=== PATIENT | male | born 1990 | race African-American/Black ===

== ENCOUNTER 2018-12-03 20:03 | Emergency (ER) | payer OTHER ==
[~2018-12-03] VITALS: Ht 195.6 cm; Wt 96.0 kg
[2018-12-03 20:07] VITALS: BP 144/98
[2018-12-03] MEDS ORDERED: RISP2 PO (20:22)
[2018-12-03] MEDS ORDERED: OLAN5TAB2 PO (20:22)
[2018-12-03] MEDS ORDERED: OLAN10TA3 PO (20:22)
[2018-12-03 20:38] LABS: BASOPHILS % (AUTO) 0.4 % (0.0-2.0); EOSINOPHILS % (AUTO) 2.4 % (1.0-6.0); HEMATOCRIT 44.4 % (41-53); HEMOGLOBIN 15.1 g/dL (13.5-17.5); LYMPHOCYTES # (AUTO) 1.4 K/uL (1.0-4.8); LYMPHOCYTES % (AUTO) 20.4 % (22.0-44.0); MEAN CORPUSCULAR HEMOGLOBIN 30.4 pg (26.0-34.0); MEAN CORPUSCULAR HGB CONC 34.1 G/dL (31.0-37.0); MEAN CORPUSCULAR VOLUME 89 fL (80-100); MONOCYTES # (AUTO) 0.7 K/uL (0.1-1.0); MONOCYTES % (AUTO) 10.2 % (2.0-9.0); NEUTROPHILS # (AUTO) 4.4 K/uL (1.8-7.7); NEUTROPHILS % (AUTO) 66.6 % (40.0-70.0); PLATELET COUNT (AUTO) 132 K/uL (150-450); RED BLOOD CELL COUNT(AUTO) 4.98 MIL/uL (4.50-5.90); RED CELL DISTRIBUTION WIDTH 13.6 % (11.5-14.5)
[2018-12-03 20:49] LABS: ANION GAP 7 mmol/L (8-16); CARBON DIOXIDE 29 mmol/L (22-29); CHLORIDE 104 mmol/L (98-107); CREATININE 0.99 mg/dL (0.60-1.30); GLOMERULAR FILTR. RATE CALC > 60 mL/min (>60); GLUCOSE,RANDOM 87 mg/dL (70-110); POTASSIUM 3.6 mmol/L (3.5-5.1); SODIUM SERUM 140 mmol/L (136-145); UREA NITROGEN, BLOOD 9 mg/dL (7-18)
[2018-12-03 20:56] LABS: ALANINE AMINOTRANSFERASE 33 U/L (12-78); ALBUMIN 3.7 g/dL (3.4-5.0); ALKALINE PHOSPHATASE 51 U/L (46-116); ASPARTATE AMINOTRANSFERASE 28 U/L (15-37); BILIRUBIN,TOTAL 1.7 mg/dL (0.1-1.0); TOTAL PROTEIN, SERUM 6.7 g/dL (6.4-8.2)
[2018-12-03 21:42] LABS: AMPHET/METH SCREEN,URINE NEGATIVE (NEGATIVE); BARBITURATE SCREEN, URINE NEGATIVE (NEGATIVE); BENZODIAZEPINES SCREEN,URINE NEGATIVE (NEGATIVE); CANNABINOID SCREEN,URINE NEGATIVE (NEGATIVE); COCAINE SCREEN,URINE NEGATIVE (NEGATIVE); METHADONE SCREEN, URINE NEGATIVE (NEGATIVE); OPIATE SCREEN,URINE NEGATIVE (NEGATIVE); PHENCYCLIDINE SCREEN,URINE NEGATIVE (NEGATIVE)
[2018-12-03 23:56] LABS: LITHIUM 0.48 mmol/L (0.60-1.20)
[2018-12-04] MEDS ORDERED: OLANZapine 5 MG TABLET PO ONE (00:30)
[2018-12-04] MEDS ORDERED: DiphenhydrAMINE HCL 25 MG CAPSULE PO ONE (00:30)
[2018-12-04 00:35] LABS: AMPHET/METH SCREEN,URINE NEGATIVE (NEGATIVE); BARBITURATE SCREEN, URINE NEGATIVE (NEGATIVE); BENZODIAZEPINES SCREEN,URINE NEGATIVE (NEGATIVE); CANNABINOID SCREEN,URINE NEGATIVE (NEGATIVE); COCAINE SCREEN,URINE NEGATIVE (NEGATIVE); METHADONE SCREEN, URINE NEGATIVE (NEGATIVE); OPIATE SCREEN,URINE NEGATIVE (NEGATIVE); PHENCYCLIDINE SCREEN,URINE NEGATIVE (NEGATIVE)
== END 2018-12-04 00:30 | disposition home or self-care (01) ==
LOC: EDBD 20:04 → EMS 20:04
DX: R44.0 Auditory hallucinations (principal); R44.1 Visual hallucinations; D69.6 Thrombocytopenia, unspecified; R79.0 Abnormal level of blood mineral; F31.9 Bipolar disorder, unspecified; F17.200 Nicotine dependence, unspecified, uncomplicated; Z79.899 Other long term (current) drug therapy
CPT/HCPCS: 36415; 80053; 80178; 80307; 85025; 99284; G0480

== ENCOUNTER 2018-12-06 13:57 | Inpatient (IN) | payer MEDICAID ==
[~2018-12-06] VITALS: Ht 195.6 cm; Wt 88.8 kg
[~2018-12-06 13:57] MED LIST: CHLO100T24 PO; CLON2 PO; DIPH25 PO; LITH300C3 PO; OLAN10TA3 PO; RANI150T7 PO; RISP2 PO; RISP3 PO
[2018-12-06 15:46] VITALS: BP 143/90
[2018-12-06 16:13] VITALS: BP 137/90
[2018-12-06] MEDS: HALOPERIDOL 5 MG TABLET PO PRN ×2 (16:57→21:16)
[2018-12-06] MEDS: LORazepam 2 MG TABLET PO PRN ×2 (16:57→21:16)
[2018-12-06] MEDS ORDERED: PETROLATUM,WHITE 71 GM JELLY TP PRN (19:30)
[2018-12-06] MEDS ORDERED: IBUPROFEN 400 MG TABLET PO PRN (19:30)
[2018-12-06] MEDS ORDERED: ACETAMINOPHEN 325 MG TABLET PO PRN (19:30)
[2018-12-06] MEDS ORDERED: MAGNESIUM HYDROXIDE SUSPENSION 30 ML UDCUP PO PRN (19:30)
[2018-12-06] MEDS ORDERED: NICOTINE 14 MG/24 HOUR PATCH TD PRN (19:30)
[2018-12-06] MEDS ORDERED: MAG HYDROX/AL HYDROX/SIMETH ES 30 ML SUSPENSION UDCUP PO PRN (19:30)
[2018-12-06] MEDS ORDERED: ALBUTEROL SULFATE HFA 90 MCG/PUFF 8 GM INHALER IH PRN (19:30)
[2018-12-06] MEDS ORDERED: DOCUSATE SODIUM 100 MG CAPSULE PO PRN (19:30)
[2018-12-06] MEDS ORDERED: GuaiFENesin/D-METHORPHAN [SUGAR-FREE] 200-20MG/10 ML SYRUP UDCUP PO PRN (19:30)
[2018-12-06] MEDS ORDERED: ONDANSETRON HCL 4 MG TABLET PO PRN (19:30)
[2018-12-06] MEDS ORDERED: CloNIDine HCL 0.1 MG TABLET PO PRN (19:30)
[2018-12-06] MEDS ORDERED: LOPERAMIDE HCL 2 MG CAPSULE PO PRN (19:30)
[2018-12-06] MEDS: ZOLPIDEM TARTRATE 10 MG TABLET PO PRN (22:06)
[2018-12-07 06:50] VITALS: BP 110/70
[2018-12-07 08:18] VITALS: BP 137/64
[2018-12-07] MEDS ORDERED: LITHIUM CARBONATE 300 MG CAPSULE PO ONE (12:15)
[2018-12-07] MEDS ORDERED: OLANZapine 5 MG TABLET PO ONE (12:15)
[2018-12-07] MEDS: LORazepam 2 MG TABLET PO PRN ×2 (14:01→20:47)
[2018-12-07] MEDS: HALOPERIDOL 5 MG TABLET PO PRN (14:01)
[2018-12-07 16:00] VITALS: BP 138/80
[2018-12-07] MEDS: LITHIUM CARBONATE 300 MG CAPSULE PO SCH (17:05)
[2018-12-07] MEDS: OLANZapine 5 MG TABLET PO SCH (17:05)
[2018-12-08 05:57] VITALS: BP 133/78
[2018-12-08 07:47] LABS: BASOPHILS % (AUTO) 0.4 % (0.0-2.0); EOSINOPHILS % (AUTO) 3.3 % (1.0-6.0); HEMATOCRIT 45.3 % (41-53); HEMOGLOBIN 15.4 g/dL (13.5-17.5); LYMPHOCYTES # (AUTO) 2.5 K/uL (1.0-4.8); LYMPHOCYTES % (AUTO) 48.4 % (22.0-44.0); MEAN CORPUSCULAR HEMOGLOBIN 30.5 pg (26.0-34.0); MEAN CORPUSCULAR HGB CONC 34.1 G/dL (31.0-37.0); MEAN CORPUSCULAR VOLUME 90 fL (80-100); MONOCYTES # (AUTO) 0.4 K/uL (0.1-1.0); NEUTROPHILS # (AUTO) 2.1 K/uL (1.8-7.7); NEUTROPHILS % (AUTO) 39.9 % (40.0-70.0); PLATELET COUNT (AUTO) 159 K/uL (150-450); RED BLOOD CELL COUNT(AUTO) 5.06 MIL/uL (4.50-5.90); RED CELL DISTRIBUTION WIDTH 13.5 % (11.5-14.5)
[2018-12-08 08:15] LABS: HEMOGLOBIN A1C 5.2 % (4.5-6.2)
[2018-12-08 08:23] LABS: ALANINE AMINOTRANSFERASE 34 U/L (12-78); ALBUMIN 3.5 g/dL (3.4-5.0); ALKALINE PHOSPHATASE 46 U/L (46-116); ANION GAP 8 mmol/L (8-16); ASPARTATE AMINOTRANSFERASE 38 U/L (15-37); BILIRUBIN,TOTAL 1.4 mg/dL (0.1-1.0); CALCIUM, TOTAL 8.8 mg/dL (8.8-10.5); CARBON DIOXIDE 30 mmol/L (22-29); CHLORIDE 103 mmol/L (98-107); CHOL/HDL RATIO 2.7 (4.2-7.3); CHOLESTEROL 162 mg/dL (131-200); CREATININE 0.87 mg/dL (0.60-1.30); FREE T4 (FREE THYROXINE) 0.96 ng/dL (0.76-1.46); GLOMERULAR FILTR. RATE CALC > 60 mL/min (>60); GLUCOSE,RANDOM 84 mg/dL (70-110); HDL CHOLESTEROL 60 mg/dL (40-60); LDL CHOL (CALC.) 81 mg/dL (0-130); POTASSIUM 4.6 mmol/L (3.5-5.1); SODIUM SERUM 141 mmol/L (136-145); TOTAL PROTEIN, SERUM 6.3 g/dL (6.4-8.2); TRIGLYCERIDES 103 mg/dL (15-150); UREA NITROGEN, BLOOD 16 mg/dL (7-18)
[2018-12-08 08:39] VITALS: BP 140/78
[2018-12-08] MEDS: LORazepam 2 MG TABLET PO PRN (08:39)
[2018-12-08] MEDS: LITHIUM CARBONATE 300 MG CAPSULE PO SCH ×2 (08:39→17:32)
[2018-12-08] MEDS: HALOPERIDOL 5 MG TABLET PO PRN (08:39)
[2018-12-08] MEDS: OLANZapine 5 MG TABLET PO SCH ×2 (08:39→17:33)
[2018-12-08 16:00] VITALS: BP 139/86
[2018-12-08] MEDS: ZOLPIDEM TARTRATE 10 MG TABLET PO PRN (20:28)
[2018-12-09 05:13] VITALS: BP 138/85
[2018-12-09 08:00] VITALS: BP 142/89
[2018-12-09] MEDS: LITHIUM CARBONATE 300 MG CAPSULE PO SCH ×2 (08:39→16:28)
[2018-12-09] MEDS: OLANZapine 5 MG TABLET PO SCH ×2 (08:40→16:28)
[2018-12-09 16:26] VITALS: BP 134/83
[2018-12-10 05:58] VITALS: BP 132/78
[2018-12-10 08:06] VITALS: BP 128/73
[2018-12-10 08:39] LABS: BASOPHILS % (AUTO) 0.5 % (0.0-2.0); EOSINOPHILS % (AUTO) 2.6 % (1.0-6.0); HEMATOCRIT 44.5 % (41-53); HEMOGLOBIN 15.2 g/dL (13.5-17.5); LYMPHOCYTES # (AUTO) 1.8 K/uL (1.0-4.8); LYMPHOCYTES % (AUTO) 36.8 % (22.0-44.0); MEAN CORPUSCULAR HGB CONC 34.2 G/dL (31.0-37.0); MEAN CORPUSCULAR VOLUME 88 fL (80-100); MONOCYTES # (AUTO) 0.3 K/uL (0.1-1.0); MONOCYTES % (AUTO) 5.7 % (2.0-9.0); NEUTROPHILS # (AUTO) 2.7 K/uL (1.8-7.7); NEUTROPHILS % (AUTO) 54.4 % (40.0-70.0); PLATELET COUNT (AUTO) 173 K/uL (150-450); RED BLOOD CELL COUNT(AUTO) 5.05 MIL/uL (4.50-5.90); RED CELL DISTRIBUTION WIDTH 13.5 % (11.5-14.5)
[2018-12-10] MEDS: OLANZapine 5 MG TABLET PO SCH (08:47)
[2018-12-10] MEDS: LITHIUM CARBONATE 300 MG CAPSULE PO SCH (08:47)
[2018-12-10 09:32] LABS: ALANINE AMINOTRANSFERASE 37 U/L (12-78); ALBUMIN 3.5 g/dL (3.4-5.0); ALKALINE PHOSPHATASE 47 U/L (46-116); ANION GAP 3 mmol/L (8-16); ASPARTATE AMINOTRANSFERASE 31 U/L (15-37); BILIRUBIN,TOTAL 1.1 mg/dL (0.1-1.0); CALCIUM, TOTAL 9.1 mg/dL (8.8-10.5); CARBON DIOXIDE 31 mmol/L (22-29); CHLORIDE 104 mmol/L (98-107); CREATININE 1.05 mg/dL (0.60-1.30); GLOMERULAR FILTR. RATE CALC > 60 mL/min (>60); GLUCOSE,RANDOM 103 mg/dL (70-110); POTASSIUM 4.3 mmol/L (3.5-5.1); SODIUM SERUM 138 mmol/L (136-145); THYROID STIMULATING HORMONE 0.98 uIU/mL (0.36-3.74); TOTAL PROTEIN, SERUM 6.5 g/dL (6.4-8.2); UREA NITROGEN, BLOOD 15 mg/dL (7-18)
[2018-12-10] MEDS: HALOPERIDOL 5 MG TABLET PO PRN (09:33)
[2018-12-10] MEDS: LORazepam 2 MG TABLET PO PRN (09:33)
[2018-12-10 09:38] LABS: LITHIUM 0.41 mmol/L (0.60-1.20)
[2018-12-10] MEDS ORDERED: LITH300T4 PO (14:41)
[2018-12-10] MEDS ORDERED: OLAN10TA22 PO (14:41)
== END 2018-12-10 15:50 | disposition home or self-care (01) | DRG 753 ==
LOC: B3A 15:37
PROVIDERS: ADMIT Psychiatry & Neurology Psychiatry; ATTEND Psychiatry & Neurology Psychiatry
DX: F31.2 Bipolar disorder, current episode manic severe with psychotic features (principal); Z91.19 Patient's noncompliance with other medical treatment and regimen; F10.10 Alcohol abuse, uncomplicated; Z71.41 Alcohol abuse counseling and surveillance of alcoholic; F41.9 Anxiety disorder, unspecified; K21.9 Gastro-esophageal reflux disease without esophagitis
CPT/HCPCS: 83036; 84439; 84443

== ENCOUNTER 2019-02-04 08:19 | Inpatient (IN) | payer MEDICAID ==
[~2019-02-04] VITALS: Ht 195.6 cm; Wt 86.5 kg
[~2019-02-04 08:19] MED LIST changes: +LITH300T4 PO; +OLAN10TA22 PO; -OLAN10TA3 PO; -RISP2 PO
[2019-02-04 09:00] VITALS: BP 135/92
[2019-02-04] MEDS ORDERED: LORazepam 2 MG TABLET PO PRN (09:30)
[2019-02-04] MEDS ORDERED: ZOLPIDEM TARTRATE 10 MG TABLET PO PRN (09:30)
[2019-02-04] MEDS ORDERED: HALOPERIDOL 5 MG TABLET PO PRN (09:30)
[2019-02-04 09:45] VITALS: BP 125/86
[2019-02-04] MEDS ORDERED: OLAN10TA3 PO (11:03)
[2019-02-04] MEDS ORDERED: LITH300CRT PO ×2 (11:03)
[2019-02-04 16:00] VITALS: BP 139/80
[2019-02-04] MEDS: OLANZapine 10 MG TABLET PO SCH (16:05)
[2019-02-04] MEDS: LITHIUM CARBONATE 300 MG CAPSULE PO SCH (16:06)
[2019-02-05 04:48] VITALS: BP 128/82
[2019-02-05 08:15] LABS: BASOPHILS % (AUTO) 0.2 % (0.0-2.0); EOSINOPHILS % (AUTO) 2.4 % (1.0-6.0); HEMATOCRIT 40.6 % (41-53); HEMOGLOBIN 13.8 g/dL (13.5-17.5); LYMPHOCYTES # (AUTO) 1.8 K/uL (1.0-4.8); LYMPHOCYTES % (AUTO) 30.6 % (22.0-44.0); MEAN CORPUSCULAR HEMOGLOBIN 30.3 pg (26.0-34.0); MEAN CORPUSCULAR HGB CONC 34.1 G/dL (31.0-37.0); MEAN CORPUSCULAR VOLUME 89 fL (80-100); MONOCYTES # (AUTO) 0.5 K/uL (0.1-1.0); MONOCYTES % (AUTO) 8.5 % (2.0-9.0); NEUTROPHILS # (AUTO) 3.4 K/uL (1.8-7.7); NEUTROPHILS % (AUTO) 58.3 % (40.0-70.0); PLATELET COUNT (AUTO) 131 K/uL (150-450); RED BLOOD CELL COUNT(AUTO) 4.57 MIL/uL (4.50-5.90)
[2019-02-05 08:23] LABS: HEMOGLOBIN A1C 5.7 % (4.5-6.2)
[2019-02-05] MEDS: LITHIUM CARBONATE 300 MG CAPSULE PO SCH (08:31)
[2019-02-05] MEDS: OLANZapine 10 MG TABLET PO SCH (08:32)
[2019-02-05 08:41] LABS: ALANINE AMINOTRANSFERASE 24 U/L (12-78); ALBUMIN 2.9 g/dL (3.4-5.0); ALKALINE PHOSPHATASE 38 U/L (46-116); ANION GAP 8 mmol/L (8-16); ASPARTATE AMINOTRANSFERASE 33 U/L (15-37); BILIRUBIN,TOTAL 2.4 mg/dL (0.1-1.0); CALCIUM, TOTAL 8.6 mg/dL (8.8-10.5); CARBON DIOXIDE 25 mmol/L (22-29); CHLORIDE 107 mmol/L (98-107); CHOLESTEROL 145 mg/dL (131-200); CREATININE 1.04 mg/dL (0.60-1.30); FREE T4 (FREE THYROXINE) 1.24 ng/dL (0.76-1.46); GLOMERULAR FILTR. RATE CALC > 60 mL/min (>60); GLUCOSE,RANDOM 81 mg/dL (70-110); HDL CHOLESTEROL 72 mg/dL (40-60); LDL CHOL (CALC.) 68 mg/dL (0-130); POTASSIUM 3.7 mmol/L (3.5-5.1); SODIUM SERUM 140 mmol/L (136-145); THYROID STIMULATING HORMONE 2.06 uIU/mL (0.36-3.74); TOTAL PROTEIN, SERUM 4.9 g/dL (6.4-8.2); TRIGLYCERIDES 27 mg/dL (15-150); UREA NITROGEN, BLOOD 14 mg/dL (7-18)
[2019-02-05 08:51] VITALS: BP 126/68
[2019-02-05 16:15] VITALS: BP 105/75
[2019-02-05] MEDS: LITHIUM CARBONATE 600 MG CAPSULE PO SCH (20:24)
[2019-02-05] MEDS ORDERED: OLANZapine 10 MG TABLET PO SCH (21:00)
[2019-02-06 00:40] VITALS: BP 111/61
[2019-02-06 08:24] VITALS: BP 132/62
[2019-02-06] MEDS ORDERED: MAGNESIUM HYDROXIDE SUSPENSION 30 ML UDCUP PO PRN (08:45)
[2019-02-06] MEDS ORDERED: MAG HYDROX/AL HYDROX/SIMETH ES 30 ML SUSPENSION UDCUP PO PRN (08:45)
[2019-02-06] MEDS ORDERED: IBUPROFEN 400 MG TABLET PO PRN (08:45)
[2019-02-06] MEDS ORDERED: CloNIDine HCL 0.1 MG TABLET PO PRN (08:45)
[2019-02-06] MEDS ORDERED: GuaiFENesin/D-METHORPHAN [SUGAR-FREE] 200-20MG/10 ML SYRUP UDCUP PO PRN (08:45)
[2019-02-06] MEDS ORDERED: ONDANSETRON HCL 4 MG TABLET PO PRN (08:45)
[2019-02-06] MEDS ORDERED: LOPERAMIDE HCL 2 MG CAPSULE PO PRN (08:45)
[2019-02-06] MEDS ORDERED: ALBUTEROL SULFATE HFA 90 MCG/PUFF 8 GM INHALER IH PRN (08:45)
[2019-02-06] MEDS ORDERED: PETROLATUM,WHITE 28 GM JELLY TP PRN (08:45)
[2019-02-06] MEDS ORDERED: NICOTINE 14 MG/24 HOUR PATCH TD PRN (08:45)
[2019-02-06] MEDS ORDERED: ACETAMINOPHEN 325 MG TABLET PO PRN (08:45)
[2019-02-06] MEDS ORDERED: DOCUSATE SODIUM 100 MG CAPSULE PO PRN (08:45)
[2019-02-06] MEDS: LITHIUM CARBONATE 300 MG CAPSULE PO SCH (09:09)
[2019-02-06 16:21] VITALS: BP 121/73
[2019-02-06] MEDS: LITHIUM CARBONATE 600 MG CAPSULE PO SCH (20:25)
[2019-02-06] MEDS: OLANZapine 7.5 MG TABLET PO SCH (20:26)
[2019-02-07 00:10] VITALS: BP 111/64
[2019-02-07 08:17] VITALS: BP 126/72
[2019-02-07] MEDS: LITHIUM CARBONATE 300 MG CAPSULE PO SCH (08:50)
[2019-02-07 16:40] VITALS: BP 119/78
[2019-02-07] MEDS: OLANZapine 7.5 MG TABLET PO SCH (20:13)
[2019-02-07] MEDS: LITHIUM CARBONATE 600 MG CAPSULE PO SCH (20:13)
[2019-02-08 00:09] VITALS: BP 112/65
[2019-02-08] MEDS ORDERED: OLAN7.5T2 PO (08:14)
[2019-02-08] MEDS: LITHIUM CARBONATE 300 MG CAPSULE PO SCH (08:16)
[2019-02-08 08:23] VITALS: BP 116/62
[2019-02-08] MEDS ORDERED: LITH300T4 PO ×2 (11:10→11:11)
[2019-02-08] MEDS ORDERED: LITH600C PO (11:14)
== END 2019-02-08 12:45 | disposition home or self-care (01) | DRG 753 ==
LOC: B2S 09:26
PROVIDERS: ADMIT Psychiatry & Neurology Psychiatry; ATTEND Psychiatry & Neurology Psychiatry
DX: F31.2 Bipolar disorder, current episode manic severe with psychotic features (principal); Z91.19 Patient's noncompliance with other medical treatment and regimen; D64.9 Anemia, unspecified; F41.9 Anxiety disorder, unspecified; K21.9 Gastro-esophageal reflux disease without esophagitis; G47.00 Insomnia, unspecified; R45.87 Impulsiveness; Z68.22 Body mass index [BMI] 22.0-22.9, adult
CPT/HCPCS: 83036; 84439; 84443

== ENCOUNTER 2019-03-07 19:33 | Emergency (ER) | payer MEDICAID, OTHER ==
[~2019-03-07] VITALS: Ht 200.7 cm; Wt 88.2 kg
[~2019-03-07 19:33] MED LIST changes: -CHLO100T24 PO; -CLON2 PO; -DIPH25 PO; -LITH300C3 PO; +LITH600C PO; -OLAN10TA22 PO; +OLAN7.5T2 PO; -RANI150T7 PO; -RISP3 PO
[2019-03-07 21:39] VITALS: BP 148/95
[2019-03-07 21:41] LABS: BASOPHILS % (AUTO) 0.5 % (0.0-2.0); EOSINOPHILS % (AUTO) 1.7 % (1.0-6.0); HEMATOCRIT 47.3 % (41-53); HEMOGLOBIN 15.8 g/dL (13.5-17.5); LYMPHOCYTES # (AUTO) 2.3 K/uL (1.0-4.8); LYMPHOCYTES % (AUTO) 36.1 % (22.0-44.0); MEAN CORPUSCULAR HEMOGLOBIN 29.4 pg (26.0-34.0); MEAN CORPUSCULAR HGB CONC 33.3 G/dL (31.0-37.0); MEAN CORPUSCULAR VOLUME 88 fL (80-100); MONOCYTES # (AUTO) 0.5 K/uL (0.1-1.0); MONOCYTES % (AUTO) 7.5 % (2.0-9.0); NEUTROPHILS # (AUTO) 3.4 K/uL (1.8-7.7); NEUTROPHILS % (AUTO) 54.2 % (40.0-70.0); PLATELET COUNT (AUTO) 172 K/uL (150-450); RED BLOOD CELL COUNT(AUTO) 5.37 MIL/uL (4.50-5.90); RED CELL DISTRIBUTION WIDTH 13.8 % (11.5-14.5)
[2019-03-07] MEDS ORDERED: OLANZapine 5 MG TABLET PO ONE (21:45)
[2019-03-07 21:52] LABS: ANION GAP 9 mmol/L (8-16); CALCIUM, TOTAL 9.3 mg/dL (8.8-10.5); CARBON DIOXIDE 29 mmol/L (22-29); CHLORIDE 105 mmol/L (98-107); CREATININE 0.97 mg/dL (0.60-1.30); GLOMERULAR FILTR. RATE CALC > 60 mL/min (>60); GLUCOSE,RANDOM 91 mg/dL (70-110); POTASSIUM 4.3 mmol/L (3.5-5.1); SODIUM SERUM 143 mmol/L (136-145); UREA NITROGEN, BLOOD 9 mg/dL (7-18)
[2019-03-07 21:57] LABS: ALANINE AMINOTRANSFERASE 27 U/L (12-78); ALBUMIN 3.5 g/dL (3.4-5.0); ALKALINE PHOSPHATASE 51 U/L (46-116); ASPARTATE AMINOTRANSFERASE 24 U/L (15-37); BILIRUBIN,TOTAL 1.1 mg/dL (0.1-1.0); TOTAL PROTEIN, SERUM 6.3 g/dL (6.4-8.2)
[2019-03-07 22:13] LABS: AMPHET/METH SCREEN,URINE NEGATIVE (NEGATIVE); BARBITURATE SCREEN, URINE NEGATIVE (NEGATIVE); BENZODIAZEPINES SCREEN,URINE NEGATIVE (NEGATIVE); CANNABINOID SCREEN,URINE NEGATIVE (NEGATIVE); COCAINE SCREEN,URINE NEGATIVE (NEGATIVE); METHADONE SCREEN, URINE NEGATIVE (NEGATIVE); OPIATE SCREEN,URINE NEGATIVE (NEGATIVE)
[2019-03-07 22:16] LABS: PHENCYCLIDINE SCREEN,URINE NEGATIVE (NEGATIVE)
[2019-03-07] MEDS ORDERED: LITHIUM CARBONATE 600 MG CAPSULE PO ONE (22:30)
== END 2019-03-07 22:50 | disposition home or self-care (01) ==
LOC: EMS 19:34
DX: F31.9 Bipolar disorder, unspecified (principal); F29 Unspecified psychosis not due to a substance or known physiological condition; F41.9 Anxiety disorder, unspecified; F17.200 Nicotine dependence, unspecified, uncomplicated; Z79.899 Other long term (current) drug therapy
CPT/HCPCS: 36415; 80053; 80178; 80307; 85025; 99285; G0480

== ENCOUNTER 2021-01-14 10:08 | Inpatient (IN) | payer MEDICAID ==
[~2021-01-14] VITALS: Ht 193 cm; Wt 89.8 kg
[2021-01-14] MEDS ORDERED: LORazepam 2 MG TABLET PO PRN (10:15)
[2021-01-14] MEDS ORDERED: ZOLPIDEM TARTRATE 10 MG TABLET PO PRN (10:15)
[2021-01-14 15:39] VITALS: BP 113/94
[2021-01-14] MEDS ORDERED: INFLUENZA VIRUS VACCINE QVS 2020-21 (6MO+)/PF 60 MCG/0.5 ML SYRINGE IM ONE (16:00)
[2021-01-14 17:48] VITALS: BP 128/75
[2021-01-14 18:05] VITALS: BP 128/75
[2021-01-15 04:39] VITALS: BP 122/68
[2021-01-15 08:22] LABS: BASOPHILS % (AUTO) 0.5 % (0.0-2.0); EOSINOPHILS % (AUTO) 4.5 % (1.0-6.0); HEMATOCRIT 39.8 % (41-53); HEMOGLOBIN 13.6 g/dL (13.5-17.5); LYMPHOCYTES # (AUTO) 1.5 K/uL (1.0-4.8); LYMPHOCYTES % (AUTO) 30.4 % (22.0-44.0); MEAN CORPUSCULAR HEMOGLOBIN 30.8 pg (26.0-34.0); MEAN CORPUSCULAR HGB CONC 34.1 G/dL (31.0-37.0); MEAN CORPUSCULAR VOLUME 90 fL (80-100); MONOCYTES # (AUTO) 0.5 K/uL (0.1-1.0); MONOCYTES % (AUTO) 9.7 % (2.0-9.0); NEUTROPHILS # (AUTO) 2.7 K/uL (1.8-7.7); NEUTROPHILS % (AUTO) 54.9 % (40.0-70.0); PLATELET COUNT (AUTO) 147 K/uL (150-450); RED BLOOD CELL COUNT(AUTO) 4.41 MIL/uL (4.50-5.90); RED CELL DISTRIBUTION WIDTH 13.7 % (11.5-14.5)
[2021-01-15] MEDS ORDERED: CloNIDine HCL 0.1 MG TABLET PO PRN (08:45)
[2021-01-15] MEDS ORDERED: BENZOCAINE/MENTHOL LOZENGE PO PRN (08:45)
[2021-01-15] MEDS ORDERED: LOPERAMIDE HCL 2 MG CAPSULE PO PRN (08:45)
[2021-01-15] MEDS ORDERED: PETROLATUM,WHITE 28 GM JELLY TP PRN (08:45)
[2021-01-15] MEDS ORDERED: ALBUTEROL SULFATE HFA 90 MCG/PUFF 8 GM INHALER IH PRN (08:45)
[2021-01-15] MEDS ORDERED: MAG HYDROX/AL HYDROX/SIMETH ES 30 ML SUSPENSION UDCUP PO PRN (08:45)
[2021-01-15] MEDS ORDERED: BACITRACIN 28 GM OINTMENT TP PRN (08:45)
[2021-01-15] MEDS ORDERED: ACETAMINOPHEN 325 MG TABLET PO PRN (08:45)
[2021-01-15] MEDS ORDERED: DOCUSATE SODIUM 100 MG CAPSULE PO PRN (08:45)
[2021-01-15] MEDS ORDERED: MAGNESIUM HYDROXIDE SUSPENSION 30 ML UDCUP PO PRN (08:45)
[2021-01-15] MEDS ORDERED: IBUPROFEN 600 MG TABLET PO PRN (08:45)
[2021-01-15] MEDS ORDERED: OMEPRAZOLE 20 MG CAPSULE PO PRN (08:45)
[2021-01-15] MEDS ORDERED: ONDANSETRON HCL 4 MG TABLET PO PRN (08:45)
[2021-01-15 08:48] VITALS: BP 132/90
[2021-01-15 08:57] LABS: ALANINE AMINOTRANSFERASE 60 U/L (12-78); ALBUMIN 3.3 g/dL (3.4-5.0); ALKALINE PHOSPHATASE 45 U/L (46-116); ANION GAP 8 mmol/L (8-16); ASPARTATE AMINOTRANSFERASE 120 U/L (15-37); BILIRUBIN,TOTAL 1.5 mg/dL (0.1-1.0); CALCIUM, TOTAL 9.4 mg/dL (8.8-10.5); CARBON DIOXIDE 28 mmol/L (22-29); CHLORIDE 108 mmol/L (98-107); CHOL/HDL RATIO 2.3 (4.2-7.3); CHOLESTEROL 149 mg/dL (131-200); CREATININE 1.06 mg/dL (0.60-1.30); FREE T4 (FREE THYROXINE) 1.52 ng/dL (0.76-1.46); GLOMERULAR FILTR. RATE CALC > 60 mL/min (>60); GLUCOSE,RANDOM 106 mg/dL (70-110); HDL CHOLESTEROL 64 mg/dL (40-60); LDL CHOL (CALC.) 71 mg/dL (0-130); SODIUM SERUM 144 mmol/L (136-145); THYROID STIMULATING HORMONE 1.46 uIU/mL (0.36-3.74); TOTAL PROTEIN, SERUM 6.4 g/dL (6.4-8.2); TRIGLYCERIDES 72 mg/dL (15-150); UREA NITROGEN, BLOOD 13 mg/dL (7-18)
[2021-01-15 16:14] VITALS: BP 126/88
[2021-01-16 01:11] VITALS: BP 124/73
[2021-01-16] MEDS: HALOPERIDOL 5 MG TABLET PO PRN (08:49)
[2021-01-16 09:18] VITALS: BP 131/80
[2021-01-16 16:24] VITALS: BP 135/92
[2021-01-17 05:58] VITALS: BP 129/82
[2021-01-17] MEDS ORDERED: PALIPERIDONE PALMITATE 234 MG/1.5 ML SYRINGE IM SCH (09:00)
[2021-01-17 09:02] VITALS: BP 124/86
[2021-01-17] MEDS: HALOPERIDOL 5 MG TABLET PO PRN ×2 (09:15→17:28)
[2021-01-17 16:13] VITALS: BP 138/97
[2021-01-18 04:29] VITALS: BP 136/88
[2021-01-18 08:02] LABS: APPEARANCE,URINE CLEAR (CLEAR); BILIRUBIN,URINE NEGATIVE (NEGATIVE); GLUCOSE, URINE (UA) NEGATIVE (NEGATIVE); KETONES,URINE NEGATIVE (NEGATIVE); LEUKOCYTE ESTERASE ,URINE NEGATIVE (NEGATIVE); NITRATE,URINE NEGATIVE (NEGATIVE); OCCULT BLOOD,URINE NEGATIVE (NEGATIVE); PROTEIN,URINE NEGATIVE (NEGATIVE); UROBILINOGEN,URINE 0.2 mg/dL (<=1.0)
[2021-01-18] MEDS: HALOPERIDOL 5 MG TABLET PO PRN (08:22)
[2021-01-18 09:12] VITALS: BP 119/78
[2021-01-18] MEDS ORDERED: PALI234D IM (13:09)
== END 2021-01-18 15:45 | disposition home or self-care (01) | DRG 750 ==
LOC: B3A 13:59
PROVIDERS: ADMIT Psychiatry & Neurology Psychiatry; ATTEND Psychiatry & Neurology Psychiatry
DX: F20.9 Schizophrenia, unspecified (principal); F10.10 Alcohol abuse, uncomplicated; F41.9 Anxiety disorder, unspecified; G47.00 Insomnia, unspecified; F17.200 Nicotine dependence, unspecified, uncomplicated; Y90.9 Presence of alcohol in blood, level not specified
CPT/HCPCS: 83036; 84436; 84439; 84443; 90686